=== PATIENT | female | born 1975 | race Caucasian/White ===

== ENCOUNTER 2018-07-03 08:36 | Day surgery (SDC) ==
[2018-07-03] MEDS: BETADINE OPTH PREP OP PRN ×2 (09:48→10:10)
[2018-07-03] MEDS: TETRACAINE 0.5% UNIT-DOSE OP PRN ×2 (09:48→10:10)
[2018-07-03] MEDS: CYCLOGYL 2% OPTH OP PRN ×3 (09:49→09:59)
[2018-07-03] MEDS ORDERED: ZOFRAN 4 MG/2 ML IVP ONE (09:56)
[2018-07-03] MEDS ORDERED: DEX-MOXI-KETOR OPTH INJ 1/0.5/0.4 MG/ML IO ONE (09:56)
[2018-07-03] MEDS ORDERED: BSS WITH EPINEPHRINE OP ONE (09:56)
[2018-07-03] MEDS ORDERED: LIDOCAINE 1%/PHENYLEPHRINE 1.5% BSS (SURGERY) INTRAOCULA ONE (09:56)
[2018-07-03] MEDS ORDERED: LIDOCAINE 1% 20 ML MDV ID STA (09:56)
[2018-07-03] MEDS ORDERED: BRIMONIDINE TARTRATE 0.2% OPTH SOL OP PRN (09:56)
[2018-07-03 10:01] VITALS: TEMP 98.4
[2018-07-03 10:04] LABS: URINE PREGNANCY TEST NEGATIVE (NEGATIVE)
[2018-07-03] MEDS ORDERED: DIPRIVAN 20 ML VIAL IVP ONE (10:10)
[2018-07-03] MEDS ORDERED: ZOFRAN 4 MG/2 ML ONE (10:10)
[2018-07-05 15:22] VITALS: BP 121/77
== END 2018-07-03 11:30 | disposition home or self-care (01) ==
LOC: SURG 08:36
PROVIDERS: ATTEND Ophthalmology
DX: H52.4 Presbyopia (principal)
CPT/HCPCS: 81025